=== PATIENT | female | born 1990 | race Caucasian/White ===

== ENCOUNTER 2020-11-17 09:47 | Inpatient (IN) ==
[2020-11-17] MEDS ORDERED: Azithromycin 500 MG in 0.9 % Sodium Chloride 250 ML IVPB ONE (10:10)
[2020-11-17] MEDS ORDERED: Ondansetron 4 MG/2 ML VIAL IVP PRN ×2 (10:10→11:13)
[2020-11-17] MEDS ORDERED: Metoclopramide 10 MG/2 ML VIAL IVP PRN (10:10)
[2020-11-17] MEDS ORDERED: Famotidine 20 MG/2 ML VIAL IVP PRN (10:10)
[2020-11-17] MEDS ORDERED: *HR* Nalbuphine 10 MG/ML AMPUL IV PRN (10:10)
[2020-11-17] MEDS ORDERED: Naloxone 0.4 MG/ML INJ IVP PRN ×2 (10:10→11:13)
[2020-11-17 11:05] LABS: Basophils % 0.6 %; Eosinophils % 0.4 %; Hematocrit 31.1 % (35.3-44.9); Hemoglobin 10.5 g/dL (11.5-15.4); Immature Granulocytes % 0.7 % (0-4); Lymphocytes # 1.1 K/mcL (0.6-4.6); Lymphocytes % 15.8 %; Mean Corpuscular HGB Conc 33.8 g/dL (31.6-35.5); Mean Corpuscular Volume 91.7 fL (83.0-100.0); Mean Platelet Volume 11.4 fL (9.4-12.4); Monocytes # 0.5 K/mcL (0.0-1.3); Monocytes % 6.6 %; Neutrophils # 5.5 K/mcL (1.6-8.9); Platelet Count 228 K/mcL (140-400); Red Blood Count 3.39 M/mcL (3.82-4.97); Red Cell Distribution Width 13.2 % (11.5-14.5); Segmented Neutrophils % 75.9 %; White Blood Count 7.2 K/mcL (4.3-11.1)
[2020-11-17] MEDS ORDERED: EPHEDrine 50 MG/ML VIAL IVP PRN (11:13)
[2020-11-17] MEDS ORDERED: Ropivacaine/PF 0.2% 20 ML VIAL EP ONE (11:13)
[2020-11-17] MEDS ORDERED: *HR* FentaNYL (PF) 100 MCG/2 ML VIAL EP ONE (11:13)
[2020-11-17] MEDS ORDERED: Epidural Premix (fent/bupiv) 110 ML EP SCH (11:15)
[2020-11-17] MEDS ORDERED: miSOPROStoL 25 MCG TABLET PO SCH (12:00)
[2020-11-17 14:01] LABS: Amphetamine Screen,Urine Negative ng/mL (Cutoff=1000); Barbiturate Screen,Urine Negative ng/mL (Cutoff=200); Benzodiazepines Screen,Urine Negative ng/mL (Cutoff=200); Cannabinoid Screen,Urine Negative ng/mL (Cutoff = 50); Cocaine Screen,Urine Negative ng/mL (Cutoff= 300); Opiate Screen,Urine Negative ng/mL (Cutoff=300); Phencyclidine Screen,Urine Negative ng/mL (Cutoff=25)
[2020-11-17] MEDS ORDERED: Oxytocin 20 units/ LR 1000 mL 20 UNIT/1,000 ML BAG IVC SCH ×2 (15:30→21:24)
[2020-11-17] MEDS: Ringers Solution, Lactated 1,000 ML IVC SCH ×2 (15:51→16:57)
[2020-11-17] MEDS ORDERED: Ropivacaine/PF 0.2% 20 ML VIAL ONE (16:23)
[2020-11-17] MEDS ORDERED: *HR* HYDROcodone/Acet 5/325 mg TABLET PO PRN (21:24)
[2020-11-17] MEDS ORDERED: Benzocaine/Menthol 56 GM AEROSOL SPRAY TP PRN (21:24)
[2020-11-17] MEDS ORDERED: Measles/Mumps/Rubella Vacc 0.5 ML VIAL SQ PRN (21:24)
[2020-11-17] MEDS ORDERED: Rho Immune Globulin 1,500 UNIT SYRINGE IM PRN (21:24)
[2020-11-18] MEDS: Acetaminophen 325 MG TABLET PO PRN ×3 (02:14→18:00)
[2020-11-18] MEDS: Ibuprofen 600 MG TABLET PO PRN ×2 (03:49→12:49)
[2020-11-18] MEDS ORDERED: Prenatal Vit/FA 1 EACH TABLET PO SCH (09:00)
[2020-11-18 19:50] VITALS: BP 108/69
== END 2020-11-18 23:00 | disposition home or self-care (01) | DRG 560 ==
LOC: 1NENULAB 09:47 → 1NENUOBS 22:11
PROVIDERS: ADMIT Advanced Practice Midwife; ATTEND Advanced Practice Midwife